=== PATIENT | female | born 1955 | race African-American/Black ===

== ENCOUNTER 2017-05-30 13:14 | Emergency (ER) | payer MEDICARE, OTHER ==
[~2017-05-30] VITALS: Ht 162.6 cm; Wt 45.0 kg
[~2017-05-30 13:14] MED LIST: FLEXERIL PO; NAPROSYN500 MG OR; NAPROSYN500 MG PO; NO HOME MEDS; PRILOSEC40 MG PO
[2017-05-30] MEDS ORDERED: LORTAB 10-325 M1 TAB PO (14:16)
[2017-05-30] MEDS ORDERED: FLEXERIL PO (14:16)
[2017-05-30 14:30] VITALS: BP 122/82
== END 2017-05-30 14:30 | disposition home or self-care (01) ==
LOC: ED 13:14
DX: S23.3XXA Sprain of ligaments of thoracic spine, initial encounter (principal); M54.6 Pain in thoracic spine; G89.29 Other chronic pain

== ENCOUNTER 2017-06-23 01:46 | Inpatient (IN) | payer MEDICARE, OTHER ==
[~2017-06-23] VITALS: Ht 162.6 cm; Wt 48.8 kg
[2017-06-23] VITALS (7 sets, daily range): BP systolic 116–159; BP diastolic 66–85
[~2017-06-23 01:46] MED LIST changes: +LORTAB 10-325 M1 TAB PO
[2017-06-23 06:41] LABS: HEMATOCRIT 30.5 % (37.0-47.0); HEMOGLOBIN 10.6 g/dl (12.0-16.0); IMMATURE GRANULOCYTES 0.5 % (0.0-1.0); MEAN CELL VOLUME 89.4 fL CALC (80.0-100.0); MEAN CORPUSCULAR HGB 31.1 pG CALC (26.0-32.0); MEAN CORPUSCULAR HGB CONC 34.8 g/L CALC (32.0-36.0); NEUT# 6.69 thou/uL (2.00-7.15); RED BLOOD COUNT 3.41 mill/uL (4.20-5.60); RED CELL DISTRI WIDTH 16.2 % (11.5-15.5)
[2017-06-23 06:45] LABS: URINE BILIRUBIN - DIPSTICK NEGATIVE (NEGATIVE); URINE BLOOD DIPSTICK NEGATIVE (NEGATIVE); URINE CLARITY CLEAR; URINE COLOR YELLOW; URINE GLUCOSE - DIPSTICK NEGATIVE (NEGATIVE); URINE KETONE NEGATIVE (NEGATIVE); URINE LEUK ESTERASE NEGATIVE (NEGATIVE); URINE NITRITE - DIPSTICK NEGATIVE (Negative); URINE PH 5.5 (4.5-8.0); URINE PROTEIN - DIPSTICK NEGATIVE (NEG-TRACE); URINE SPECIFIC GRAVITY <=1.005; URINE UROBILINOGEN - DIPSTICK 0.2 E.U./dL (0.2)
[2017-06-23 08:05] LABS: ALBUMIN 4.5 g/dL (3.2-5.0); CALCIUM 9.7 mg/dL (8.4-10.2); CREATININE 1.2 mg/dL (0.5-1.0); POTASSIUM 4.1 mmol/l (3.5-5.1); TOTAL PROTEIN 8.8 g/dL (6.3-8.2)
[2017-06-23 17:55] LABS: PROTHROMBIN TIME 10.5 SECONDS (9.0-12.5)
[2017-06-24 00:10] VITALS: BP 105/66
[2017-06-24 04:10] VITALS: BP 147/79
[2017-06-24 04:35] VITALS: BP 106/63
[2017-06-24 05:57] LABS: HEMATOCRIT 30.6 % (37.0-47.0); HEMOGLOBIN 10.2 g/dl (12.0-16.0); IMMATURE GRANULOCYTES 0.5 % (0.0-1.0); MEAN CELL VOLUME 92.7 fL CALC (80.0-100.0); MEAN CORPUSCULAR HGB 30.9 pG CALC (26.0-32.0); MEAN CORPUSCULAR HGB CONC 33.3 g/L CALC (32.0-36.0); NEUT# 8.82 thou/uL (2.00-7.15); RED BLOOD COUNT 3.3 mill/uL (4.20-5.60); RED CELL DISTRI WIDTH 16.3 % (11.5-15.5)
[2017-06-24 06:29] LABS: ANION GAP 16 (6-22 (CALC)); BUN 17 mg/dL (8-23); BUN/CREATININE RATIO 24 (12-20 (CALC)); CALCIUM 9.2 mg/dL (8.4-10.2); CARBON DIOXIDE 25 mmol/l (22-30); CHLORIDE 93 mmol/l (95-108); CREATININE 0.7 mg/dL (0.5-1.0); GFR > 60 ML/MIN (>=60 (CALC)); GFR FOR AFR.AMER. > 60 ML/MIN (>=60 (CALC)); GLUCOSE 106 mg/dL (82-115); POTASSIUM 3.9 mmol/l (3.5-5.1); SODIUM 130 mmol/l (137-146)
[2017-06-24 08:11] VITALS: BP 117/66
[2017-06-24 16:30] VITALS: BP 116/66
[2017-06-24 19:46] VITALS: BP 91/57
[2017-06-25 04:22] VITALS: BP 128/76
[2017-06-25 05:56] LABS: HEMATOCRIT 29.6 % (37.0-47.0); HEMOGLOBIN 9.6 g/dl (12.0-16.0); MEAN CELL VOLUME 95.5 fL CALC (80.0-100.0); MEAN CORPUSCULAR HGB CONC 32.4 g/L CALC (32.0-36.0); RED BLOOD COUNT 3.1 mill/uL (4.20-5.60); RED CELL DISTRI WIDTH 16.7 % (11.5-15.5)
[2017-06-25 06:17] LABS: ALBUMIN 3.2 g/dL (3.2-5.0); ALKALINE PHOSPHATASE 353 u/l (38-126); ANION GAP 13 (6-22 (CALC)); BILIRUBIN, TOTAL 0.5 mg/dL (0.0-1.4); BUN 8 mg/dL (8-23); BUN/CREATININE RATIO 15 (12-20 (CALC)); CALCIUM 8.9 mg/dL (8.4-10.2); CARBON DIOXIDE 26 mmol/l (22-30); CHLORIDE 101 mmol/l (95-108); CREATININE 0.5 mg/dL (0.5-1.0); GFR > 60 ML/MIN (>=60 (CALC)); GFR FOR AFR.AMER. > 60 ML/MIN (>=60 (CALC)); GLUCOSE 72 mg/dL (82-115); POTASSIUM 3.4 mmol/l (3.5-5.1); SGOT/AST 21 u/l (9-36); SGPT/ALT 25 u/l (11-66); SODIUM 136 mmol/l (137-146); TOTAL PROTEIN 6.7 g/dL (6.3-8.2)
[2017-06-25 08:14] VITALS: BP 136/70
[2017-06-25] MEDS ORDERED: TRAMADOL HCL50 MG PO (14:01)
[2017-06-25] MEDS ORDERED: LIBRIUM25 M1 PO (14:05)
== END 2017-06-25 15:27 | disposition home or self-care (01) | DRG 536 ==
LOC: ED 01:46 → ED-I 06:51 → ED 07:04 → ICU 07:05 → MS2 17:40
PROVIDERS: Emergency Medicine; Internal Medicine; Nurse Practitioner Family; ADMIT Internal Medicine; ATTEND Internal Medicine
DX: S32.302A Unspecified fracture of left ilium, initial encounter for closed fracture (principal); N17.9 Acute kidney failure, unspecified; E87.1 Hypo-osmolality and hyponatremia; K83.8 Other specified diseases of biliary tract; E11.9 Type 2 diabetes mellitus without complications; F17.210 Nicotine dependence, cigarettes, uncomplicated; E86.0 Dehydration; K21.9 Gastro-esophageal reflux disease without esophagitis; F10.229 Alcohol dependence with intoxication, unspecified; R74.8 Abnormal levels of other serum enzymes; W01.0XXA Fall on same level from slipping, tripping and stumbling without subsequent striking against object, initial encounter; Y92.009 Unspecified place in unspecified non-institutional (private) residence as the place of occurrence of the external cause; Z96.642 Presence of left artificial hip joint
CPT/HCPCS: J1650; Q9967

== ENCOUNTER 2017-08-12 17:33 | Emergency (ER) | payer MEDICARE, OTHER ==
[~2017-08-12] VITALS: Ht 162.6 cm; Wt 45.0 kg
[~2017-08-12 17:33] MED LIST changes: +LIBRIUM25 M1 PO; +TRAMADOL HCL50 MG PO
[2017-08-12] MEDS ORDERED: IBUPROFEN600 MG PO (17:43)
[2017-08-12] MEDS ORDERED: FLEXERIL PO (17:43)
[2017-08-12 17:57] VITALS: BP 131/70
== END 2017-08-12 17:57 | disposition home or self-care (01) ==
LOC: ED 17:33
DX: G89.29 Other chronic pain (principal); M54.5 Low back pain; F17.200 Nicotine dependence, unspecified, uncomplicated

== ENCOUNTER 2018-05-27 11:47 | Emergency (ER) | payer MEDICARE, MEDICAID ==
[~2018-05-27] VITALS: Ht 162.6 cm; Wt 56.8 kg
[~2018-05-27 11:47] MED LIST changes: +IBUPROFEN600 MG PO
[2018-05-27 12:31] LABS: HEMATOCRIT 34.8 % (37.0-47.0); IMMATURE GRANULOCYTES 0.2 % (0.0-5.0); MEAN CELL VOLUME 93.5 fL CALC (80.0-100.0); MEAN CORPUSCULAR HGB 31.2 pG CALC (26.0-32.0); MEAN CORPUSCULAR HGB CONC 33.3 g/L CALC (32.0-36.0); NEUT# 2.07 thou/uL (2.00-7.15); RED BLOOD COUNT 3.72 mill/uL (4.20-5.60); RED CELL DISTRI WIDTH 17.2 % (11.5-15.5)
[2018-05-27 12:32] LABS: HEMOGLOBIN 11.6 g/dl (12.0-16.0)
[2018-05-27 12:38] LABS: AMYLASE 94 u/l (30-110); BILIRUBIN, TOTAL 0.3 mg/dL (0.0-1.4); BUN 8 mg/dL (8-23); BUN/CREATININE RATIO 14 (12-20 (CALC)); CARBON DIOXIDE 21 mmol/l (22-30); CHLORIDE 105 mmol/l (95-108); CREATININE 0.5 mg/dL (0.5-1.0); GFR > 60 ML/MIN (>=60 (CALC)); GFR FOR AFR.AMER. > 60 ML/MIN (>=60 (CALC)); LIPASE 124 u/l (23-300); SGPT/ALT 25 u/l (11-66); SODIUM 142 mmol/l (137-146)
[2018-05-27 12:39] LABS: ALBUMIN 4.2 g/dL (3.2-5.0); ALKALINE PHOSPHATASE 136 u/l (38-126); ANION GAP 20 (6-22 (CALC)); POTASSIUM 4.4 mmol/l (3.5-5.1); SGOT/AST 50 u/l (9-36); TOTAL PROTEIN 8.4 g/dL (6.3-8.2)
[2018-05-27 12:50] LABS: MYOGLOBIN 13 ng/mL (0 - 62)
[2018-05-27] MEDS ORDERED: NAPROSYN500 MG PO (13:10)
[2018-05-27 13:18] VITALS: BP 115/77
== END 2018-05-27 13:13 | disposition left against medical advice (07) ==
LOC: ED 11:47
PROVIDERS: Emergency Medicine
DX: R07.9 Chest pain, unspecified (principal); F17.210 Nicotine dependence, cigarettes, uncomplicated; Z91.19 Patient's noncompliance with other medical treatment and regimen

== ENCOUNTER 2018-08-31 15:32 | Inpatient (IN) | payer MEDICARE, MEDICAID ==
[~2018-08-31] VITALS: Ht 162.6 cm; Wt 49.4 kg
--- NOTE | 2018-08-31 15:35 | NUR ---
PT ARRIVES TO TX ROOM VIA EMS, RECEIVED 1MG NARCAN BY EMS EN ROUTE. PT ARRIVES AWAKE, ALERT, AND AGGITATED. VSS.
[2018-08-31 16:18] LABS: HEMATOCRIT 36.5 % (37.0-47.0); HEMOGLOBIN 12.1 g/dl (12.0-16.0); IMMATURE GRANULOCYTES 0.4 % (0.0-5.0); MEAN CELL VOLUME 93.4 fL CALC (80.0-100.0); MEAN CORPUSCULAR HGB 30.9 pG CALC (26.0-32.0); MEAN CORPUSCULAR HGB CONC 33.2 g/L CALC (32.0-36.0); NEUT# 2.11 thou/uL (2.00-7.15); RED BLOOD COUNT 3.91 mill/uL (4.20-5.60)
--- NOTE | 2018-08-31 16:18 | NUR ---
BLOOD DRAWN, EKG DONE, NEB TX PROVIDED. PT CONTINUES TO CHALLENGE EVERYTHING DONE. NO ACUTE DISTRESS NOTED.
[2018-08-31 16:43] LABS: ALBUMIN 4.3 g/dL (3.2-5.0); ALKALINE PHOSPHATASE 150 u/l (38-126); ANION GAP 21 (6-22 (CALC)); BILIRUBIN, TOTAL 0.3 mg/dL (0.0-1.4); BUN 7 mg/dL (8-23); BUN/CREATININE RATIO 11 (12-20 (CALC)); CARBON DIOXIDE 19 mmol/l (22-30); CHLORIDE 107 mmol/l (95-108); CREATININE 0.6 mg/dL (0.5-1.0); GFR > 60 ML/MIN (>=60 (CALC)); GFR FOR AFR.AMER. > 60 ML/MIN (>=60 (CALC)); POTASSIUM 4.1 mmol/l (3.5-5.1); SGOT/AST 83 u/l (9-36); SODIUM 143 mmol/l (137-146); TOTAL PROTEIN 8.4 g/dL (6.3-8.2)
--- NOTE | 2018-08-31 16:55 | NUR ---
AT BEDSIDE TO DISCUSS PLAN FOR ADMISSION. PT REFUSED. MADE PT AWARE THAT IF SHE REFUSES ADMISSION SHE WILL BE KONSTANTIN ACTED. PT CONTINUES TO REFUSE ADMISSION. MD INFORMED PT ON PLAN TO PRYOR ACT.
[2018-08-31 17:01] LABS: ETHYL ALCOHOL 332 mg/dl (0-30)
[2018-08-31 18:17] LABS: BARBITURATES NEGATIVE (NEGATIVE); COCAINE POSITIVE (NEGATIVE); METHADONE NEGATIVE (NEGATIVE); OXCYCODONE POSITIVE (NEGATIVE); TETRAHYDROCANNABIONOL NEGATIVE (NEGATIVE); TRICYLIC ANTIDEPRESSANTS NEGATIVE (NEGATIVE)
--- NOTE | 2018-08-31 19:17 | NUR ---
MULTIPLE CALLS WITH BEVELLER OPERATOR AND BIN OPERATOR DUE TO THE NATURE OF THIS ADMISSION. PLAN AT THIS TIME IS TO ADMIT PATIENT A PRYOR ACT DUE TO THIS NOT BEING AN ACCIDENTAL ISSUE. THIS TOWN CLERK ASKED THAT ER TAKE ALL BELONGINGS AWAY AND PATIENT ONLY HAVE ON A GOWN PER THE [facility] PROTOCOL AND NO VISITORS WILL BE ALLOWED ONCE ADMITTED TO ICU.
--- NOTE | 2018-08-31 19:40 | NUR ---
SPOKE TO DR MALDONADO REFERENCE LAB ORDERS FOR RECHECKING ALCOHOL LEVEL. WILL RECHECK ALCOHOL LEVEL IN AM FOR [facility] POLICY GREATER THAT 65 IS CONSIDERED GERIATRIC AND PLACEMENT WILL NEED TO BE ARRANGED TOMORROW BY CASE MANAGEMENT PER [facility] POLICY.
--- NOTE | 2018-08-31 20:05 | NUR ---
PT TAKEN TO ICU-1 WITHOUT INCIDENT, REPORT WAS TO [facility].
[2018-08-31 20:30] VITALS: BP 163/79
--- NOTE | 2018-08-31 20:30 | NUR ---
PT TO ICU BED 1 VIA STRETCHER ACCOMPANIED BY ER STAFF. PT ABLE TO AMBULATE TO RESTROOM AND TO BED WITH MINIMAL ASSISTANCE. SHAKY AND UNSTEADY GAIT NOTED. PT IS ALERT AND ORIENTED X3. ADMISSION ASSESSMENT COMPLETED AT THIS TIME. PLAN OF CARE REVIEWED WITH PATIENT. PT VERBALIZED UNDERSTANDING. PT PLACED ON MONITORS AND EXPLAINED MONITORING PROCESS. PT AGAIN VERBALIZED UNDERSTANDING. CALL LIGHT EXPLAINED AND PRYOR ACT EXPLAINED TO PATIENT. PT RECEPTIVE AND VERBALIZED UNDERSTANING. CALL LIGHT IN REACH. WILL CONTINUE TO MONITOR.
[2018-08-31 20:45] VITALS: BP 137/65
--- NOTE | 2018-08-31 20:45 | NUR ---
A PERSON CLAIMING TO BE THE NIECE CALLED UNIT. REQUESTED INFORMATION ON PATIENT. WHEN THIS SALESFORCE SPECIALIST REQUESTED . PERSON ON OTHER END OF PHONE BEGAN TO YELL. EXPLAINED THAT THERE WAS NO NEED FOR THAT AND WE NEEDED TO VERIFY FOR HIPPA. PERSON ON PHONE CONTINUES TO YELL. THIS SALESFORCE SPECIALIST SAID HAD A NICE EVENING AND ENDED PHONE CALL.
--- NOTE | 2018-08-31 20:48 | NUR ---
PHONED SISTER TALIA PER PATIENT REQUEST. CODE WAS GIVEN AND UPDATE PROVIDED.
[2018-08-31 21:00] VITALS: BP 138/70
--- NOTE | 2018-08-31 21:07 | NUR ---
SPOKE WITH FOOD SERVICE HOTEL RUNNER FOR THIS SHIFT WHO SAID [facility] WAS NOTIFIED OF THIS ADMISSION AND THAT PATIENT SHOULD BE REFERRED TO A PSYCHIATRIC FACILITY IN THE AM.
[2018-08-31 21:15] VITALS: BP 135/69
[2018-08-31 21:44] LABS: URINE BILIRUBIN - DIPSTICK NEGATIVE (NEGATIVE); URINE BLOOD DIPSTICK NEGATIVE (NEGATIVE); URINE CLARITY CLEAR; URINE COLOR YELLOW; URINE GLUCOSE - DIPSTICK NEGATIVE (NEGATIVE); URINE KETONE NEGATIVE (NEGATIVE); URINE LEUK ESTERASE NEGATIVE (Negative); URINE NITRITE - DIPSTICK NEGATIVE (Negative); URINE PROTEIN - DIPSTICK NEGATIVE (NEG-TRACE); URINE SPECIFIC GRAVITY 1.025; URINE UROBILINOGEN - DIPSTICK 0.2 E.U./dL (0.2)
--- NOTE | 2018-08-31 21:51 | NUR ---
PT RESTING IN BED AWAKE WATCHING TV. RESP ARE EVEN AND UNLABORED. NO DISTRESS NOTED. PT VOICES NO COMPLAINTS AT THIS TIME. CALL LIGHT IN REACH. SITTER PRESENT. WILL CONTINUE TO MONITOR
[2018-08-31 23:39] VITALS: BP 142/76
--- NOTE | 2018-08-31 23:50 | NUR ---
PT RESTING IN BED WITH EYES CLOSED. RESP ARE EVEN AND UNLABORED. NO DISTRESS NOTED. SITTER WITH PATIENT PER [facility] POLICY. CALL LIGHT IN REACH. WILL CONTINUE TO MONITOR.
[2018-09-01] VITALS (13 sets, daily range): BP systolic 121–174; BP diastolic 59–90
--- NOTE | 2018-09-01 01:30 | NUR ---
SITTER IN ROOM WITH PT AND REPORTS THAT PT IS VOMITTING. NOTIFIED DR MALDONADO. NEW ORDERS RECEIVED. WILL CONTINUE TO MONITOR
--- NOTE | 2018-09-01 02:05 | NUR ---
WHILE IN ROOM MEDICATING PT NOTED THAT PT HANDS ARE SHAKING. ASKED PT IF SHE IS COLD OR IF THIS IS THE SHAKES PT STATES THAT ITS THE SHAKES FOR HER. EXPLAINED THE LIBRIUM REASON. PT THANKFUL FOR CARE. SITTER MONITORING PT. CALL LIGHT IN REACH. WILL CONTINUE TO MONITOR
--- NOTE | 2018-09-01 03:46 | NUR ---
PT RESTING IN BED WITH EYES CLOSED. ARM MOVEMENTS CONTINUE WHILE PATIENT IS SLEEPING. NO N/V AT THIS TIME. SITTER PRESENT. CALL LIGHT IN REACH. WILL CONTINUE TO MONITOR
--- NOTE | 2018-09-01 04:50 | NUR ---
STRIPPER AND PRINTER INTO ROOM TO DRAW AM LABS. PT THEN ASSISTED TO BATHROOM TO VOID. PT CONTINUES TO BE COMPLIATN. NO N.V AT THIS TIME. PT CONTINUES TO HAVE THE SHAKES. PT ASSISTED BACK TO BED. CALL LIGHT IN REACH. WILL CONTINUE TO MONITOR.
[2018-09-01 05:20] LABS: HEMATOCRIT 32.2 % (37.0-47.0); HEMOGLOBIN 10.7 g/dl (12.0-16.0); IMMATURE GRANULOCYTES 0.3 % (0.0-5.0); MEAN CELL VOLUME 92.3 fL CALC (80.0-100.0); MEAN CORPUSCULAR HGB 30.7 pG CALC (26.0-32.0); MEAN CORPUSCULAR HGB CONC 33.2 g/L CALC (32.0-36.0); NEUT# 2.75 thou/uL (2.00-7.15); RED BLOOD COUNT 3.49 mill/uL (4.20-5.60); RED CELL DISTRI WIDTH 15.5 % (11.5-15.5)
[2018-09-01 05:56] LABS: ALBUMIN 3.8 g/dL (3.2-5.0); ALKALINE PHOSPHATASE 205 u/l (38-126); ANION GAP 16 (6-22 (CALC)); BILIRUBIN, TOTAL 0.4 mg/dL (0.0-1.4); BUN 5 mg/dL (8-23); BUN/CREATININE RATIO 12 (12-20 (CALC)); CARBON DIOXIDE 24 mmol/l (22-30); CHLORIDE 104 mmol/l (95-108); CREATININE 0.4 mg/dL (0.5-1.0); GFR > 60 ML/MIN (>=60 (CALC)); GFR FOR AFR.AMER. > 60 ML/MIN (>=60 (CALC)); POTASSIUM 4.4 mmol/l (3.5-5.1); SODIUM 140 mmol/l (137-146); TOTAL PROTEIN 7.7 g/dL (6.3-8.2)
[2018-09-01 06:01] LABS: MAGNESIUM 1.6 mg/dL (1.6-2.3); SGOT/AST 148 u/l (9-36)
--- NOTE | 2018-09-01 06:12 | NUR ---
PT RESTING IN BED WATCHING TV. RESP ARE EVEN AND UNLABORED. NO DISTRESS NOTED. SITTER WITH PATIENT. LABS REVIEWED. CALL LIGHT IN REACH. WILL CONTINUE TO MONITOR.
--- NOTE | 2018-09-01 07:00 | NUR ---
RECVD REPORT FROM BRADEN MADRID. PT CURRENTLY LAYING IN BED, ON RIGHT SIDE, WATCHING TV. NO S/S OF DISTRESS. SITTER OBSERVING PT.
--- NOTE | 2018-09-01 07:59 | NUR ---
PT GIVEN LIBRIUM DUE TO SHAKING. PT STATES SHE HAS CHRONIC BACK PAIN DUE TO SPURS. PT SITTING UP IN BED, EATING BREAKFAST, WATCHING TV.
--- NOTE | 2018-09-01 09:06 | NUR ---
DR MALDONADO @BEDSIDE ASSESSING PT. PT ADMITS SHE HAD A SUICIDE ATTEMPT A LONG TIME AGO AFTER HER SON . PT DENIED WANTING TO HURT HERSELF. PT SMOKES EVERY DAY & DRINKS ABOUT 12 BEERS EVERY DAY. SMOKING SINCE SHE WAS 14. C/O CHRONIC BACK PAIN. STATES HER FRIEND GIVES HER OXYCODONE SOMETIMES WHEN HER BACK HURTS ALOT. STATES HER PCP GIVES HER TRAMADOL FOR HER PAIN. DR MALDONADO ADVISED TO GIVE NICOTENE PATCH, TREAT FOR COPD & DETOX. PT STATES SHE HAS BEEN BABYSITTING ALL HER LIFE. ADMITS SHE DRINKS BUT DOESNT GET DRUNK WHEN SHE DRINKS ALL DAY. BABYSITS A 7 & 8 YO.
--- NOTE | 2018-09-01 10:11 | NUR ---
DR MALDONADO RECENDED PTS PRYOR ACT. PT A&Ox4.
--- NOTE | 2018-09-01 10:27 | NUR ---
PT UP TO BATHROOM WITH MINIMAL ASSISTANCE. GIVEN BATH & LINENS CHANGED.
--- NOTE | 2018-09-01 11:01 | NUR ---
SISTER & SON @BEDSIDE WITH PT. PT LAUGHING/PLAYFUL WITH FAMILY. NO S/S OF DISTRESS. PT A&Ox4. BREATHING IS EVEN/UNLABORED. SKIN WARM/DRY. CALLBELL W/IN REACH. WILL CONTINUE TO MONITOR.
--- NOTE | 2018-09-01 12:15 | NUR ---
PT SLEEPING IN BED. NO S/S OF DISTRESS. LUNCH TRAY ON BEDSIDE TABLE.
--- NOTE | 2018-09-01 13:25 | NUR ---
PT SITTING UP IN BED, EATING LUNCH, WATCHING TV. NO S/S OF DISTRESS. NO CHANGE IN NEURO SINCE SHIFT STARTED. WILL CONTINUE TO MONITOR.
--- NOTE | 2018-09-01 14:19 | NUR ---
PT UP TO THE BATHROOM W/ MINIMAL ASSIST.
--- NOTE | 2018-09-01 14:54 | NUR ---
PT SLEEPING IN BED. BREATHING IS EVEN/UNLABORED.
--- NOTE | 2018-09-01 15:05 | NUR ---
CHAU & MALIK VISITING PT.
--- NOTE | 2018-09-01 15:58 | NUR ---
ABBY, CASE MANAGEMENT, @ BEDSIDE
--- NOTE | 2018-09-01 19:00 | NUR ---
PT SITTING UP IN BED WATCHING TV. PT IS ALERT AND ORIENTED X3. SHIFT ASSESSMENT COMPLETED AT THIS TIME. IV PATENT X1. PT REPORTS THAT HER SHAKINESS IS BETTER. DENIES N/V AT THIS TIME. CALL LIGHT IN REACH. WILL CONTINUE TO MONIOTR.
--- NOTE | 2018-09-01 21:00 | NUR ---
PT ASSISTED TO BATHROOM TO VOID. MINIMAL ASSISTANCE REQUIRED. PT TOLERATED WELL WITHOUT SOB ON EXERTION. PT COUGHED UP SPUTUM ONCE BACK IN BED. SPUTUM SPECIMEN OBTAINED.
--- NOTE | 2018-09-01 22:00 | NUR ---
PT RESTING IN BED AWAKE WATCHING TV. RESP ARE EVEN AND UNLABORED. NO DISTRESS NOTED. CALL LIGHT IN REACH. WILL CONTINUE OT MONITOR
--- NOTE | 2018-09-01 22:25 | NUR ---
RT INTO ROOM FOR NEB TREATMENT.
--- NOTE | 2018-09-01 22:55 | NUR ---
PT ASSISTED TO BATHROOM TO VOID. MEDICATED PT WITH LIBRIUM PO PRIOR TO PT FALLING ASLEEP TO KEEP PT ON A Q6H SCHEDULE WITH MEDICATION. ASSISTED BACK TO BED. CALL LIGHT IN REACH. WILL CONTINUE TO MONITOR
[2018-09-02] VITALS (8 sets, daily range): BP systolic 125–157; BP diastolic 64–90
--- NOTE | 2018-09-02 00:10 | NUR ---
PT ASSISTED TO RETROOM TO VOID. PT WAS TRYING TO GO BY SELF. EXPLAINED TO PATIENT THAT SHE SHOULD CALL FOR ASSISTANCE DUE TO ALL THE DEVICES SHE IS CURRENTLY ATTACHED TO. PT VERBALIZED UNDERSTANDING. PT ASSISTED BACK TO BED. CALL LIGHT IN REACH. WILL CONTINUE TO MONITOR.
--- NOTE | 2018-09-02 01:51 | NUR ---
PT RESTING IN BED WITH EYES CLOSED. RESP ARE EVEN AND UNLABORED. NO DISTRESS NOTED. CALL LIGHT IN REACH. WILL CONTINUE TO MONITOR.
--- NOTE | 2018-09-02 02:30 | NUR ---
ON DEC UNABLE TO ASSESS PAIN MED EFFECTIVENESS DUE TO TIME CHANGE DIFFERENCE. PT NOW RESTING IN BED WITH EYES CLOSED. NO COMPLAINTS VOICED AT THIS TIME.
--- NOTE | 2018-09-02 02:56 | NUR ---
PT AWAKE SITTING UP IN BED WITH COMPLAINTS OF BACK PAIN. HEATING PAD PROVIDED AND TRAMADOL PROVIDED. CALL LIGHT IN REACH. WILL CONTINUE TO TR
--- NOTE | 2018-09-02 03:36 | NUR ---
PT ASSISTED TO BATHROOM TO VOID WITH MINIMAL ASSISTANCE TO VOID. PT ABLE TO AMBULATE. PT ASSISTED BACK TO BED AND PLACED BACK ON THE MONITOR. CALL LIGHT IN REACH. WILL CONTINUE TO MONITOR
--- NOTE | 2018-09-02 04:19 | NUR ---
CHIEF OF PEDIATRIC UROLOGY INTO DRAW AM LABS ON PATIENT.
[2018-09-02 04:53] LABS: HEMATOCRIT 32.9 % (37.0-47.0); HEMOGLOBIN 10.6 g/dl (12.0-16.0); IMMATURE GRANULOCYTES 0.5 % (0.0-5.0); MEAN CELL VOLUME 95.1 fL CALC (80.0-100.0); MEAN CORPUSCULAR HGB 30.6 pG CALC (26.0-32.0); MEAN CORPUSCULAR HGB CONC 32.2 g/L CALC (32.0-36.0); NEUT# 3.84 thou/uL (2.00-7.15); RED BLOOD COUNT 3.46 mill/uL (4.20-5.60); RED CELL DISTRI WIDTH 15.9 % (11.5-15.5)
[2018-09-02 05:10] LABS: ALBUMIN 3.4 g/dL (3.2-5.0); ALKALINE PHOSPHATASE 163 u/l (38-126); ANION GAP 9 (6-22 (CALC)); BILIRUBIN, TOTAL 0.7 mg/dL (0.0-1.4); BUN 3 mg/dL (8-23); BUN/CREATININE RATIO 8 (12-20 (CALC)); CARBON DIOXIDE 31 mmol/l (22-30); CHLORIDE 103 mmol/l (95-108); CREATININE 0.4 mg/dL (0.5-1.0); GFR > 60 ML/MIN (>=60 (CALC)); GFR FOR AFR.AMER. > 60 ML/MIN (>=60 (CALC)); MAGNESIUM 1.9 mg/dL (1.6-2.3); POTASSIUM 3.9 mmol/l (3.5-5.1); SGOT/AST 45 u/l (9-36); SODIUM 140 mmol/l (137-146)
--- NOTE | 2018-09-02 05:15 | NUR ---
PT ASSISTED TO BATHROOM TO VOID. SOB NOTED ON RETURN TO BED WITH MONGE COUGH.
--- NOTE | 2018-09-02 05:38 | NUR ---
RT INTO ROOM FOR NEB TREATMENT
--- NOTE | 2018-09-02 07:00 | NUR ---
REPORT RECVD FROM BRADEN MADRID AT START OF SHIFT
--- NOTE | 2018-09-02 07:15 | NUR ---
PT AWAKE & ALERT. ASKED FOR LIBRIUM FOR SHAKING HANDS BUT SHE FELT BETTER WHEN I REMINDED HER THAT SHE ALREADY HAD IT AT 0530 THIS AM. BREATHING IS EVEN/UNLABORED, LUNG SOUNDS CLEAR. PULSES STRONG. EYES PERRLA @4. ALAMO. NO EDEMA. NO SKIN ISSUES. DENIES N/V/D. HUNGRY IS ONLY COMPLAINT.
--- NOTE | 2018-09-02 07:30 | NUR ---
PT SITTING UP IN BED, EATING BREAKFAST.
--- NOTE | 2018-09-02 08:08 | NUR ---
DIETARY @ BEDSIDE FOR PTS MEAL PREFERENCES.
--- NOTE | 2018-09-02 09:17 | NUR ---
NICTONINE PATCH REMOVED FROM LEFT ARM & NEW PATCH PLACED ON UPPER RIGHT ARM.
--- NOTE | 2018-09-02 09:19 | NUR ---
RT @BEDSIDE FOR BREATHING TREATMENT.
--- NOTE | 2018-09-02 09:49 | NUR ---
PT SLEEPING IN BED. SON CAME BY WITH 3 LITTLE GIRLS. NO S/S OF DISTRESS. WILL CONTINUE TO MONITOR.
--- NOTE | 2018-09-02 10:11 | NUR ---
TOLD PT HER SON CAME BY WITH GRANDCHILDREN. PT REQUESTED HER BELONGINGS BAG AND PULLED OUT A SALAD FROM [employer] THAT HER SON BROUGHT HER YESTERDAY. PT EDUCATED THAT THE CHEESE, EGGS, & LUNCH MEAT IS PROBABLY NOT GOOD ANYMORE AND ADVISED PT THAT WE CAN PLACE FOOD IN THE FRIDGE FOR HER IN THE FUTURE. PT INSISTS ON EATING SALAD & CANDY.
--- NOTE | 2018-09-02 10:26 | NUR ---
DR MALDONADO @BEDSIDE WITH PT. ADVISED PT OF RECENT TEST RESULTS & NEW NPO STATUS DUE TO PANCREATITIS. PT ACKNOWLEDGED INFORMATION. DISCUSSED IMPORTANCE OF STOPPING ETOH WITH PT. PT SALAD LABELED & PLACED IN FRIDGE.
--- NOTE | 2018-09-02 10:28 | NUR ---
PT WILL BE GOING TO [facility] WHEN TRANSFER ORDERS ARE COMPLETED.
--- NOTE | 2018-09-02 11:16 | NUR ---
PT STARTED ON 1ST ORAL CONTRAST DRINK.
--- NOTE | 2018-09-02 11:48 | NUR ---
PT UP TO BATHROOM W/OUT ASSISTANCE. COMPLETED ORAL CONTRAST. RADIOLOGY AWARE.
--- NOTE | 2018-09-02 12:26 | NUR ---
PT REPORT RECIEVED FROM BRADEN LOZA
--- NOTE | 2018-09-02 12:26 | NUR ---
REPORT GIVEN TO TALYA DOMINIQUE ON [facility].
--- NOTE | 2018-09-02 12:43 | NUR ---
PT TRANSFERED TO [facility] BY WC IN STABLE CONDITION.
--- NOTE | 2018-09-02 13:10 | NUR ---
PT TRANSPORTED TO CT VIA WHEELCHAIR ACCOMPIANED BY GRAYSON KING IN STABLE CONDITION
--- NOTE | 2018-09-02 13:19 | NUR ---
TRANSPPORTED TO [facility] VIA WC ACCOMPIANED BY BRADEN LOZA. PT AMBULATED TO BED W/ STEADY GAIT. VS DONE. PT A/OX3, APPEARING CALM AT THIS TIME. PERRLA. RESP EVEN AND UNLABORED. LUNG SOUNDS CLEAR. BOWEL SOUNDS ACTIVE X4. STRONG RADIAL AND PEDAL PULSES. #20 RFA BANANA BAG @100. SITE APPEARS HEALTHY. SKIN INTACT. SAFETY PRECAUTIONS IN PLACE. CALL LIGHT IN REACH. WILL CONTINUE TO MONITOR.
--- NOTE | 2018-09-02 13:38 | NUR ---
PT TRANSPORTED BACK TO [facility] VIA WHEELCHAIR ACCOMPIANED BY GRAYSON KING
--- NOTE | 2018-09-02 16:32 | NUR ---
PT SITTING IN BED. NO S/S OF ANYXIETY OR DISTRESS. RESP EVEN AND UNLABORED. PT DENIES ANY PAIN, BUT IS REQUESTING MORE JUICE AND BROTH. CALL LIGHT IN REACH. WILL CONTINUE TO MONITOR.
--- NOTE | 2018-09-02 16:42 | NUR ---
ASK PT ABOUT CHANGING HER EMS IV SITE. PT REFUSED STATING SHE WANTS TO WAIT TIL LATER FOR IT TO BE CHANGED. IV SITE APPEARS HEALTHY. WILL NOTIFY NEXT SHIFT.
--- NOTE | 2018-09-02 17:31 | NUR ---
IV SITE APPEARS TO BE LEAKING BLOODY DRAINAGE,SITE CLEANSED AND NEW DRESSING APPLIED.
--- NOTE | 2018-09-02 18:15 | NUR ---
IV SITE REMOVED DUE TO CONTINUOUS LEAKING WITH CATHETER INTACT;NEW #22G STARTED TO LEFT FOREARM ON 4TH ATTEMPT BY SYLVIA SAEED RN; PT TOLERATED WELL AND BANANA BAG RESTARTED AT THIS TIME.
--- NOTE | 2018-09-02 19:00 | NUR ---
BEDSIDE REPORT RECEIVED FROM TALYA DOMINIQUE. PT RESTING IN BED SEMI FOWLERS; ALERT AND ORIENTED AND WATCHING TV. C/O UPPER BACK PAIN 06/08; FACIAL 12/09; WARM PACK APPLIED. RESPIRATIONS EVEN AND UNLABORED ON ROOM AIR; O2 PRN AT BEDSIDE. PLAN OF CARE DISCUSSED. PT ENCOURAGED TO VERABLIZE CONCERNS. STATES UNDERSTANDING. SAFETY MEASURES IN PLACE. CALL LIGHT WITHIN REACH.
--- NOTE | 2018-09-02 21:32 | NUR ---
PT. ASLEEP. REQUESTED NOT TO BE WOKE. IN NO APPARENT DISTRESS.
--- NOTE | 2018-09-03 | NUR ---
PT ASLEEP AT THIS TIME WITH NO SIGNS OF DISTRESS. RESPIRATIONS EVEN AND UNLABROED ON ROOM AIR. IV SITE APPEARS HEALTHY AND FLUSHES. PT IS STAND BY ASSIST. SAFETY MEASURES IN PLACE. CALL LIGHT WITHIN REACH.
[2018-09-03 00:40] VITALS: BP 139/70
[2018-09-03 04:00] VITALS: BP 145/85
--- NOTE | 2018-09-03 04:33 | NUR ---
NO ACUTE CHANGES IN CONDITION THROUGHOUT THE NIGHT. NO REQUESTS OR CONCERNS AT THIS TIME. CALL LIGHT WITH IN REACH.
[2018-09-03 05:31] LABS: HEMATOCRIT 32.7 % (37.0-47.0); HEMOGLOBIN 10.4 g/dl (12.0-16.0); IMMATURE GRANULOCYTES 0.2 % (0.0-5.0); MEAN CELL VOLUME 95.1 fL CALC (80.0-100.0); MEAN CORPUSCULAR HGB 30.2 pG CALC (26.0-32.0); MEAN CORPUSCULAR HGB CONC 31.8 g/L CALC (32.0-36.0); NEUT# 2.53 thou/uL (2.00-7.15); RED BLOOD COUNT 3.44 mill/uL (4.20-5.60); RED CELL DISTRI WIDTH 15.8 % (11.5-15.5)
[2018-09-03 05:45] LABS: ALBUMIN 3.1 g/dL (3.2-5.0); ALKALINE PHOSPHATASE 139 u/l (38-126); AMYLASE 63 u/l (30-110); ANION GAP 9 (6-22 (CALC)); BILIRUBIN, TOTAL 0.6 mg/dL (0.0-1.4); CARBON DIOXIDE 29 mmol/l (22-30); CHLORIDE 105 mmol/l (95-108); CREATININE 0.4 mg/dL (0.5-1.0); GFR > 60 ML/MIN (>=60 (CALC)); GFR FOR AFR.AMER. > 60 ML/MIN (>=60 (CALC)); LIPASE 97 u/l (23-300); MAGNESIUM 1.8 mg/dL (1.6-2.3); POTASSIUM 3.7 mmol/l (3.5-5.1); SGOT/AST 28 u/l (9-36); SODIUM 139 mmol/l (137-146); TOTAL PROTEIN 6.5 g/dL (6.3-8.2)
[2018-09-03 05:47] LABS: BUN < 2 mg/dL (8-23); BUN/CREATININE RATIO < 5 (12-20 (CALC))
--- NOTE | 2018-09-03 07:05 | NUR ---
REPORT RECEIVED FROM BRADEN DIOR. PT IN THE BATHROOM, A/O X3; NO S/S OF DISTRESS NOTED; WILL CONTINUE TO MONITOR.
[2018-09-03 08:29] VITALS: BP 129/76
--- NOTE | 2018-09-03 08:31 | NUR ---
ASSESSMENT COMPLETED; PT SITTING ON EDGE OF BED, APPEARS CALM; INDIPENDENT IN ROOM WITH STEADY GAIT; #20 LFA, S/L; SITE APPEARS HEALTHY; SKIN INTACT; RESP EVEN & UNLABORED; TELE IN PLACE; SAFTEY PRECAUTION REINFORCED; CALL SANCHEZ IN REACH. WILL CONTINUE TO MONITOR.
--- NOTE | 2018-09-03 09:20 | NUR ---
PT TALKING ON THE PHONE, MEDICATED PER EMAR.
--- NOTE | 2018-09-03 09:46 | NUR ---
SEEMA HILLMAN AT BED SIDE TO DISCUSS POC.
--- NOTE | 2018-09-03 11:07 | NUR ---
DR MALDONADO AND SEEMA HILLMAN AT BEDSIDE TO DISCUSS POC; FAMILY MEMBERS PRESENT
[2018-09-03 11:15] VITALS: BP 148/89
--- NOTE | 2018-09-03 11:41 | NUR ---
PT SITTING UP SIDE OF BED EATING LUNCH NO S/S OF DISTRESS NOTED; CALL SANCHEZ IN REACH. PT INDIPENDENT IN ROOM; WILL CONTINUE TO MONITOR
[2018-09-03] MEDS ORDERED: LIBRIUM25 M1 PO (12:00)
[2018-09-03] MEDS ORDERED: DOXY-CAPS100 MG PO (12:01)
[2018-09-03] MEDS ORDERED: PROTONIX40 M2 PO (12:02)
[2018-09-03] MEDS ORDERED: TRAMADOL HCL50 MG PO (12:03)
[2018-09-03] MEDS ORDERED: NICOTINE T21 MG/242 TD (12:07)
--- NOTE | 2018-09-03 13:30 | NUR ---
Discharge instructions given. Patient verbalizes understanding of same. Discharged in stable condition via Ambulatory to Home with family. All belongings sent with pt.
== END 2018-09-03 13:30 | disposition home or self-care (01) | DRG 918 ==
LOC: ED 15:32 → ED-I 17:03 → ED 17:30 → ICU 17:31 → MS2 09-01 09:19
PROVIDERS: Family Medicine; ADMIT Internal Medicine Nephrology; ATTEND Internal Medicine Nephrology
DX: T40.2X1A Poisoning by other opioids, accidental (unintentional), initial encounter (principal); J44.0 Chronic obstructive pulmonary disease with (acute) lower respiratory infection; E87.1 Hypo-osmolality and hyponatremia; J20.9 Acute bronchitis, unspecified; F10.129 Alcohol abuse with intoxication, unspecified; M47.816 Spondylosis without myelopathy or radiculopathy, lumbar region; M46.06 Spinal enthesopathy, lumbar region; F41.1 Generalized anxiety disorder; K21.9 Gastro-esophageal reflux disease without esophagitis; R74.8 Abnormal levels of other serum enzymes; F17.210 Nicotine dependence, cigarettes, uncomplicated
CPT/HCPCS: Q9967

== ENCOUNTER 2018-09-17 11:53 | Emergency (ER) | payer MEDICARE, MEDICAID ==
[~2018-09-17] VITALS: Ht 162.6 cm; Wt 53.6 kg
[~2018-09-17 11:53] MED LIST changes: +DOXY-CAPS100 MG PO; +NICOTINE T21 MG/242 TD; +PROTONIX40 M2 PO
[2018-09-17] MEDS ORDERED: ULTRAM50 M1 PO (12:28)
[2018-09-17 16:02] LABS: COCAINE NEGATIVE (NEGATIVE); METHADONE NEGATIVE (NEGATIVE); TETRAHYDROCANNABIONOL NEGATIVE (NEGATIVE)
[2018-09-17 16:03] LABS: BARBITURATES NEGATIVE (NEGATIVE); OXCYCODONE NEGATIVE (NEGATIVE); TRICYLIC ANTIDEPRESSANTS NEGATIVE (NEGATIVE)
[2018-09-17 17:02] VITALS: BP 131/73
== END 2018-09-17 17:00 | disposition home or self-care (01) ==
LOC: ED 11:53
DX: M25.551 Pain in right hip (principal); F17.210 Nicotine dependence, cigarettes, uncomplicated; M19.90 Unspecified osteoarthritis, unspecified site; W01.0XXA Fall on same level from slipping, tripping and stumbling without subsequent striking against object, initial encounter; Y92.009 Unspecified place in unspecified non-institutional (private) residence as the place of occurrence of the external cause

== ENCOUNTER 2021-11-23 13:08 | Emergency (ER) | payer MEDICARE, MEDICAID ==
[~2021-11-23] VITALS: Ht 162.6 cm; Wt 65.0 kg
[~2021-11-23 13:08] MED LIST changes: +ULTRAM50 M1 PO
[2021-11-23] MEDS ORDERED: MEDDOSEPAK PO (17:27)
[2021-11-23] MEDS ORDERED: PERCOCET 5/325M1 TAB PO (17:27)
[2021-11-23] MEDS ORDERED: NO HOME MED (17:51)
[2021-11-23 17:53] VITALS: BP 131/71
== END 2021-11-23 17:53 | disposition home or self-care (01) ==
LOC: ED 13:08
DX: M25.552 Pain in left hip (principal); F17.200 Nicotine dependence, unspecified, uncomplicated

== ENCOUNTER 2022-02-08 08:41 | Observation (INO) | payer MEDICARE, MEDICAID ==
[~2022-02-08] VITALS: Ht 165.1 cm; Wt 63.0 kg
[2022-02-08] VITALS (13 sets, daily range): BP systolic 95–149; BP diastolic 43–85
[~2022-02-08 08:41] MED LIST changes: +MEDDOSEPAK PO; +NO HOME MED; +PERCOCET 5/325M1 TAB PO
[2022-02-08] MEDS ORDERED: PREDNISONE20 MG PO (09:00)
[2022-02-08 09:34] LABS: IMMATURE GRANULOCYTES 0.6 % (0.0-5.0); MEAN CORPUSCULAR HGB 37.1 pG CALC (26.0-32.0); MEAN CORPUSCULAR HGB CONC 34.1 g/dL CAL (32.0-36.0); NEUT# 9.4 thou/uL (2.00-7.15); RED BLOOD COUNT 2.05 mill/uL (4.20-5.60); RED CELL DISTRI WIDTH 19.6 % (11.5-15.5)
[2022-02-08 09:39] LABS: HEMATOCRIT 22.3 % (37.0-47.0); HEMOGLOBIN 7.6 g/dl (12.0-16.0)
[2022-02-08 09:40] LABS: MEAN CELL VOLUME 108.8 fL CALC (80.0-100.0)
[2022-02-08 09:45] LABS: ALBUMIN 3.3 g/dL (3.2-5.0); CREATININE 1.1 mg/dL (0.5-1.0); MAGNESIUM 2.1 mg/dL (1.6-2.3); POTASSIUM 3.1 mmol/l (3.5-5.1); TOTAL PROTEIN 7.8 g/dL (6.3-8.2)
[2022-02-08 09:54] LABS: BILIRUBIN, TOTAL 3.3 mg/dL (0.0-1.4)
[2022-02-09 04:31] VITALS: BP 94/39
[2022-02-09 07:21] VITALS: BP 116/59
[2022-02-09 08:07] LABS: HEMATOCRIT 21.9 % (37.0-47.0); HEMOGLOBIN 7.2 g/dl (12.0-16.0); IMMATURE GRANULOCYTES 0.7 % (0.0-5.0); MEAN CELL VOLUME 112.3 fL CALC (80.0-100.0); MEAN CORPUSCULAR HGB 36.9 pG CALC (26.0-32.0); MEAN CORPUSCULAR HGB CONC 32.9 g/dL CAL (32.0-36.0); NEUT# 7.55 thou/uL (2.00-7.15); RED BLOOD COUNT 1.95 mill/uL (4.20-5.60); RED CELL DISTRI WIDTH 19.7 % (11.5-15.5)
[2022-02-09 08:59] LABS: ALBUMIN 2.7 g/dL (3.2-5.0); ALKALINE PHOSPHATASE 200 u/l (38-126); ANION GAP 17 (6-22 (CALC)); BILIRUBIN, TOTAL 3.1 mg/dL (0.0-1.4); BUN 19 mg/dL (8-23); BUN/CREATININE RATIO 21 (12-20 (CALC)); CARBON DIOXIDE 16 mmol/l (22-30); CHLORIDE 102 mmol/l (95-108); CREATININE 0.9 mg/dL (0.5-1.0); GFR > 60 ML/MIN (>=60 (CALC)); GFR FOR AFR.AMER. > 60 ML/MIN (>=60 (CALC)); SGOT/AST 86 u/l (9-36); SODIUM 132 mmol/l (137-146); TOTAL PROTEIN 7.1 g/dL (6.3-8.2)
[2022-02-09 09:12] LABS: INTERNATIONAL NORMALIZED RATIO 1.1 RATIO (0.7-1.3); PROTHROMBIN TIME 11.2 SECONDS (9.0-12.5)
[2022-02-09 14:55] VITALS: BP 115/63
[2022-02-09 19:59] VITALS: BP 104/46
[2022-02-10] VITALS (10 sets, daily range): BP systolic 96–138; BP diastolic 48–69
[2022-02-10 06:03] LABS: IMMATURE GRANULOCYTES 1.6 % (0.0-5.0); MEAN CELL VOLUME 109.4 fL CALC (80.0-100.0); MEAN CORPUSCULAR HGB 37.5 pG CALC (26.0-32.0); MEAN CORPUSCULAR HGB CONC 34.3 g/dL CAL (32.0-36.0); NEUT# 6.82 thou/uL (2.00-7.15); RED BLOOD COUNT 1.6 mill/uL (4.20-5.60); RED CELL DISTRI WIDTH 19.8 % (11.5-15.5)
[2022-02-10 06:15] LABS: ANION GAP 9 (6-22 (CALC)); BUN 12 mg/dL (8-23); BUN/CREATININE RATIO 17 (12-20 (CALC)); CHLORIDE 108 mmol/l (95-108); CREATININE 0.7 mg/dL (0.5-1.0); GFR > 60 ML/MIN (>=60 (CALC)); GFR FOR AFR.AMER. > 60 ML/MIN (>=60 (CALC)); MAGNESIUM 1.8 mg/dL (1.6-2.3); POTASSIUM 2.7 mmol/l (3.5-5.1); SODIUM 138 mmol/l (137-146)
[2022-02-10 06:17] LABS: CARBON DIOXIDE 24 mmol/l (22-30)
[2022-02-10 06:19] LABS: HEMATOCRIT 17.5 % (37.0-47.0)
[2022-02-10 16:36] LABS: HEMATOCRIT 20.6 % (37.0-47.0); HEMOGLOBIN 7.3 g/dl (12.0-16.0)
[2022-02-11 00:11] VITALS: BP 99/59
[2022-02-11 04:38] VITALS: BP 139/72
[2022-02-11 05:19] LABS: HEMATOCRIT 23.9 % (37.0-47.0); HEMOGLOBIN 8.1 g/dl (12.0-16.0); IMMATURE GRANULOCYTES 1.1 % (0.0-5.0); MEAN CELL VOLUME 103.5 fL CALC (80.0-100.0); MEAN CORPUSCULAR HGB 35.1 pG CALC (26.0-32.0); MEAN CORPUSCULAR HGB CONC 33.9 g/dL CAL (32.0-36.0); NEUT# 6.63 thou/uL (2.00-7.15); RED BLOOD COUNT 2.31 mill/uL (4.20-5.60); RED CELL DISTRI WIDTH 20.3 % (11.5-15.5)
[2022-02-11 05:34] LABS: ALBUMIN 2.3 g/dL (3.2-5.0); ALKALINE PHOSPHATASE 161 u/l (38-126); ANION GAP 10 (6-22 (CALC)); BUN 6 mg/dL (8-23); BUN/CREATININE RATIO 9 (12-20 (CALC)); CARBON DIOXIDE 21 mmol/l (22-30); CHLORIDE 110 mmol/l (95-108); CREATININE 0.7 mg/dL (0.5-1.0); GFR > 60 ML/MIN (>=60 (CALC)); GFR FOR AFR.AMER. > 60 ML/MIN (>=60 (CALC)); POTASSIUM 3.1 mmol/l (3.5-5.1); SGOT/AST 56 u/l (9-36); SODIUM 137 mmol/l (137-146); TOTAL PROTEIN 5.7 g/dL (6.3-8.2)
[2022-02-11 05:36] LABS: BILIRUBIN, TOTAL 0.9 mg/dL (0.0-1.4)
[2022-02-11 07:43] VITALS: BP 120/71
[2022-02-11 10:34] VITALS: BP 119/55
[2022-02-11 15:18] VITALS: BP 148/67
[2022-02-11 19:01] VITALS: BP 114/69
[2022-02-11 19:57] LABS: HEMATOCRIT 27.1 % (37.0-47.0)
[2022-02-11 19:58] LABS: URINE BILIRUBIN - DIPSTICK NEGATIVE (NEGATIVE); URINE BLOOD DIPSTICK SMALL (NEGATIVE); URINE COLOR YELLOW; URINE GLUCOSE - DIPSTICK NEGATIVE (NEGATIVE); URINE KETONE NEGATIVE (NEGATIVE); URINE PROTEIN - DIPSTICK NEGATIVE (NEG-TRACE); URINE UROBILINOGEN - DIPSTICK 0.2 E.U./dL (0.2)
[2022-02-11 20:00] LABS: URINE LEUK ESTERASE MODERATE (NEGATIVE); URINE NITRITE - DIPSTICK NEGATIVE (Negative)
[2022-02-11 20:15] LABS: URINE BACTERIA MANY hpf; URINE WBC >100 WBC/hpf (0-5)
[2022-02-11 20:16] LABS: URINE CASTS RARE lpf (NONE-RARE)
[2022-02-12] VITALS (7 sets, daily range): BP systolic 105–134; BP diastolic 62–68
[2022-02-12 05:21] LABS: HEMOGLOBIN 8.2 g/dl (12.0-16.0); IMMATURE GRANULOCYTES 0.4 % (0.0-5.0); MEAN CELL VOLUME 103.4 fL CALC (80.0-100.0); MEAN CORPUSCULAR HGB 35.3 pG CALC (26.0-32.0); MEAN CORPUSCULAR HGB CONC 34.2 g/dL CAL (32.0-36.0); NEUT# 4.74 thou/uL (2.00-7.15); RED BLOOD COUNT 2.32 mill/uL (4.20-5.60); RED CELL DISTRI WIDTH 21.7 % (11.5-15.5)
[2022-02-12 05:47] LABS: ANION GAP 9 (6-22 (CALC)); BUN 3 mg/dL (8-23); BUN/CREATININE RATIO 5 (12-20 (CALC)); CARBON DIOXIDE 21 mmol/l (22-30); CHLORIDE 112 mmol/l (95-108); CREATININE 0.6 mg/dL (0.5-1.0); GFR > 60 ML/MIN (>=60 (CALC)); GFR FOR AFR.AMER. > 60 ML/MIN (>=60 (CALC)); MAGNESIUM 1.6 mg/dL (1.6-2.3); POTASSIUM 3.2 mmol/l (3.5-5.1); SODIUM 138 mmol/l (137-146)
[2022-02-13 03:23] VITALS: BP 116/54
[2022-02-13 05:26] LABS: HEMATOCRIT 24.4 % (37.0-47.0); HEMOGLOBIN 8.1 g/dl (12.0-16.0); IMMATURE GRANULOCYTES 0.3 % (0.0-5.0); MEAN CELL VOLUME 105.6 fL CALC (80.0-100.0); MEAN CORPUSCULAR HGB 35.1 pG CALC (26.0-32.0); MEAN CORPUSCULAR HGB CONC 33.2 g/dL CAL (32.0-36.0); NEUT# 4.79 thou/uL (2.00-7.15); RED BLOOD COUNT 2.31 mill/uL (4.20-5.60); RED CELL DISTRI WIDTH 22.1 % (11.5-15.5)
[2022-02-13 05:39] LABS: ALBUMIN 2.2 g/dL (3.2-5.0); ALKALINE PHOSPHATASE 139 u/l (38-126); ANION GAP 11 (6-22 (CALC)); BILIRUBIN, TOTAL 0.7 mg/dL (0.0-1.4); BUN 4 mg/dL (8-23); BUN/CREATININE RATIO 6 (12-20 (CALC)); CARBON DIOXIDE 18 mmol/l (22-30); CHLORIDE 108 mmol/l (95-108); CREATININE 0.6 mg/dL (0.5-1.0); GFR > 60 ML/MIN (>=60 (CALC)); GFR FOR AFR.AMER. > 60 ML/MIN (>=60 (CALC)); SGOT/AST 63 u/l (9-36); SODIUM 133 mmol/l (137-146); TOTAL PROTEIN 5.6 g/dL (6.3-8.2)
[2022-02-13 09:09] VITALS: BP 122/63
[2022-02-13 11:06] VITALS: BP 122/78
[2022-02-13 18:51] VITALS: BP 119/56
[2022-02-14 00:19] VITALS: BP 138/74
[2022-02-14 04:27] VITALS: BP 125/67
[2022-02-14 05:33] LABS: HEMATOCRIT 26.2 % (37.0-47.0); HEMOGLOBIN 8.5 g/dl (12.0-16.0); IMMATURE GRANULOCYTES 0.1 % (0.0-5.0); MEAN CELL VOLUME 107.8 fL CALC (80.0-100.0); MEAN CORPUSCULAR HGB CONC 32.4 g/dL CAL (32.0-36.0); NEUT# 4.25 thou/uL (2.00-7.15); RED BLOOD COUNT 2.43 mill/uL (4.20-5.60); RED CELL DISTRI WIDTH 21.7 % (11.5-15.5)
[2022-02-14 05:54] LABS: ALBUMIN 2.1 g/dL (3.2-5.0); ALKALINE PHOSPHATASE 136 u/l (38-126); BILIRUBIN, TOTAL 0.8 mg/dL (0.0-1.4); BUN 3 mg/dL (8-23); BUN/CREATININE RATIO 6 (12-20 (CALC)); CARBON DIOXIDE 20 mmol/l (22-30); CHLORIDE 109 mmol/l (95-108); CREATININE 0.6 mg/dL (0.5-1.0); GFR > 60 ML/MIN (>=60 (CALC)); GFR FOR AFR.AMER. > 60 ML/MIN (>=60 (CALC)); SGOT/AST 52 u/l (9-36); SODIUM 134 mmol/l (137-146); TOTAL PROTEIN 5.4 g/dL (6.3-8.2)
[2022-02-14 05:55] LABS: ANION GAP 8 (6-22 (CALC)); POTASSIUM 3.4 mmol/l (3.5-5.1)
[2022-02-14] MEDS ORDERED: LACTULOSE10 GM/15 M PO (09:50)
[2022-02-14] MEDS ORDERED: GABAPENTIN100 MG PO (09:50)
[2022-02-14] MEDS ORDERED: KEFLEX500 MG PO (09:50)
[2022-02-14] MEDS ORDERED: FOLIC ACID1 M1 PO (09:50)
[2022-02-14] MEDS ORDERED: VITAMIN B COMPL1 TAB PO (09:50)
[2022-02-14 10:15] VITALS: BP 119/63
[2022-02-14 14:35] VITALS: BP 123/70
== END 2022-02-14 15:35 ==
LOC: ED 08:41 → ED-I 12:20 → ED 13:17 → MS2 13:18
PROVIDERS: Family Medicine; Nurse Practitioner; ADMIT Hospitalist; ATTEND Hospitalist
PROC: 30233N1 Transfusion of Nonautologous Red Blood Cells into Peripheral Vein, Percutaneous Approach (ICD-10-PCS; principal; 2022-02-10)
DX: K70.40 Alcoholic hepatic failure without coma (principal); E86.0 Dehydration; E87.2 Acidosis; F10.239 Alcohol dependence with withdrawal, unspecified; D52.8 Other folate deficiency anemias; N39.0 Urinary tract infection, site not specified; K70.30 Alcoholic cirrhosis of liver without ascites; G62.1 Alcoholic polyneuropathy; E87.6 Hypokalemia; R07.81 Pleurodynia; M25.552 Pain in left hip; F17.200 Nicotine dependence, unspecified, uncomplicated; W19.XXXA Unspecified fall, initial encounter; Z96.642 Presence of left artificial hip joint; Z91.81 History of falling; Z20.822 Contact with and (suspected) exposure to COVID-19
CPT/HCPCS: J1650; J2060; J3475; P9016; Q9967